=== PATIENT | male | born 1985 | race African-American/Black ===

== ENCOUNTER 2018-09-15 19:16 | Emergency (ER) | payer MEDICAID ==
[~2018-09-15] VITALS: Ht 340.4 cm; Wt 67.1 kg
[2018-09-15 19:19] VITALS: Ht 340.4 cm; Wt 67.1 kg
[2018-09-15 21:14] VITALS: BP 125/84
== END 2018-09-15 21:14 | disposition home or self-care (01) ==
LOC: ED 19:16
DX: R51 Headache (principal); Z98.890 Other specified postprocedural states